=== PATIENT | male | born 1955 | race Two or more races ===

== ENCOUNTER → 2024-08-11 | Outpatient (CLI) | payer MEDICARE, OTHER, SELFPAY ==
--- NOTE | 2024-08-11 13:55 | XR_ITS ---
Examination: CTA chest, with intravenous contrast. CTA abdomen, with intravenous contrast. CTA pelvis, with intravenous contrast. 2-D sagittal and coronal reconstructions. 3-D reconstructions. Date and time of exam: August 11, 2024 1513 hrs. Comparison October 14, 2023 Indications: History Phan type B thoracic aortic aneurysm CTDI vol (mgy) 20.4 DLP (MGycm) 823 Technique: Multiple CTA images, 2.0 mm slice thickness, obtained chest, abdomen, pelvis, with the high-resolution 64 slice scanner. Intravenous administration 100 cc [id number] 2-D sagittal reconstructions 3-D reconstructions 3-D postprocessing maximum intensity projection images Low dose protocols, automated exposure control, adjustment MA KV according to patient size Findings: Status post thoracic aortic stent for this patient's [place] type B thoracic aortic dissection The stent is opacified The AP dimension of the descending thoracic aortic aneurysm is 6.6 cm compared to 6.5 cm on October 06, 2023 there does remain contrast in the false lumen of the Phan type B thoracic aortic dissection, starting on image 59 aortic arch and extending to the descending thoracic aorta No mediastinal lymphadenopathy 3 mm pulmonary nodule right upper lobe No current significant pericardial disease No pneumonia No focal liver or splenic lesions The dissection does on this study extendi into the upper abdominal aorta, or there is a separate abdominal aortic dissection beginning axial image [address] the way into both common iliac and external iliac arteries No liver or splenic infarction No pancreatic mass Atrophic end-stage right kidney No left renal infarction Fat-containing umbilical hernia Normal appendix No bowel obstruction Prostatomegaly transverse dimension 4.9 cm No bladder mass Impression: Status post descending thoracic aortic endoluminal stent There remains, however, opacification 4 Contrast in the false lumen of the descending thoracic aortic dissection as above Again noted abdominal aortic dissection which extends the entire abdominal aorta into the external iliac arteries
== END | disposition home or self-care (01) ==
PROVIDERS: PCP Family Medicine
DX: I71.02 Dissection of abdominal aorta (principal); Z98.890 Other specified postprocedural states
CPT/HCPCS: 71275; 74174; A4649; Q9967

== ENCOUNTER → 2025-01-26 | Outpatient (CLI) | payer MEDICARE, OTHER, SELFPAY ==
--- NOTE | 2025-01-26 13:00 | XR_ITS ---
Examination: Bone densitometry Date and time of exam:January 26, 2025 1322 hours INDICATIONS: 69-year-old male with diagnosis age related osteoporosis Technique: Lumbar spine and hip total bone mineralization values of an calculated. Peak reference and age match control results have been displayed. Findings: Lumbar spine total bone mineralization is0.737 gm/cm2. This is 3.4 standard deviations below peak reference. This is 2.6 standard deviations below age-matched controls. Hip total bone mineralization is 0.703 gm/cm2 This is 2.7 standard deviations below peak reference. This is 2.1 standard deviations below age-matched controls Impression: There is osteoporosis based on lumbar spine measurements. There is osteoporosis based on hip measurements
== END | disposition home or self-care (01) ==
PROVIDERS: PCP Family Medicine; Referring Provider Family Medicine; Visit Provider Family Medicine
DX: M81.0 Age-related osteoporosis without current pathological fracture (principal)
CPT/HCPCS: 77080